=== PATIENT | male | born 2000 | race Native Hawaiian/Other Pacific Islander ===

== ENCOUNTER 2022-04-14 11:38 | Emergency (ER) | payer SELFPAY ==
[2022-04-14 12:03] VITALS: BP 135/82; PULSE 67; RESP 18; TEMP 36.7; O2SAT 99; BMI 29.2
--- NOTE | 2022-04-14 12:30 | ED.WOUNDLAC ---
HPI - Wound/Laceration General Chief Complaint: Laceration/Wound Stated Complaint: Laceration left foot Time Seen by Provider: 04/14/22 11:41 History of Present Illness HPI narrative: This 22-year-old male comes in with an injury to his left foot. He was using an axe to chop of root out. He ended up hitting his left foot. He was wearing leather boots and the ax cut through the boot and into the dorsal medial aspect of his left foot. His tetanus status is up-to-date. He has normal function of his foot and reports no other injury. Related Data Home Medications Medication Instructions Recorded Confirmed No Known Home Medications 04/14/22 04/14/22 Allergies Allergy/AdvReac Type Severity Reaction Status Date / Time No Known Drug Allergies Allergy Verified 04/14/22 12:07 Review of Systems Status of ROS: Reports: 10 or more systems reviewed and unremarkable except as noted in History and below Narrative: Constitutional: No fevers, no weight gain or loss. Eyes: No discharge. No vision changes. HENT: No congestion, no sore throat, no ear pain. Cardiovascular: No chest pain, no palpitations. Respiratory: No shortness of breath, no wheezes, no cough. Gastrointestinal: No abdominal pain, no vomiting, no diarrhea. Genitourinary: No dysuria, no hematuria. Musculoskeletal: Normal range of motion. Skin: No rashes, no pruritis. Laceration on the left foot as described above. Neurological: No dizziness, weakness, sensory change, speech change. Endo/Heme/Allergies: No bruising or bleeding. No polydipsia. Pysch: no suicidality, no anxiety, no insomnia. All other systems reviewed and are negative. [facility] Medical History (Updated 04/14/22 @ 12:36 by Fernando Lee MD) No significant past medical history Surgical History (Updated 04/14/22 @ 12:09 by Karyna Sam RN) H/O knee surgery Social History Smoking Status: Never smoker How often do you have a drink containing alcohol: monthly or less AUDIT-C Alcohol total score: 1 Non-prescribed substance use: denies use Exam Narrative: Exam Narrative: Constitutional: Well-developed, well-nourished, no acute distress. HEENT: Normocephalic, atraumatic. Neck: Normal range of motion. Nontender. Supple. Heart: Intact distal pulses. Lungs: No chest discomfort. No wheezes, rhonchi, or rales. Abdomen: Nontender. Back: Normal range of motion. Extremities: Normal range of motion. 2.5 cm linear laceration on the medial aspect of the dorsal portion of the left foot. Skin: Intact. No rash. Warm. No erythema or pallor. Neurologic: No altered sensation. No weakness. Alert and oriented. Psychiatric: No suicidality. No anxiety or depression. No insomnia. Nursing notes and vitals signs are reviewed. Const: Vital Signs, click to edit/add: Vital Signs - 24 hr 04/14/22 12:03 Temperature 98.1 F Pulse Rate [Pulse Oximeter] 67 Respiratory Rate 18 Blood Pressure [Ri ght Upper Arm] 135/82 Pulse Oximetry 99 Oxygen Delivery Me thod Room Air Course Vital Signs Vital signs: Initial Vital Signs Temperature 98.1 F 04/14/22 12:03 Temperature Source Temporal Artery Scan 04/14/22 12:03 Pulse Rate 67 04/14/22 12:03 Respiratory Rate 18 04/14/22 12:03 Blood Pressure 135/82 04/14/22 12:03 Blood Pressure Mean 99 04/14/22 12:03 Blood Pressure Position Supine 04/14/22 12:03 Pulse Oximetry 99 04/14/22 12:03 Oxygen Delivery Method 04/14/22 12:03 Vital Signs Temperature 98.1 F 04/14/22 12:03 Pulse Rate 67 04/14/22 12:03 Respiratory Rate 18 04/14/22 12:03 Blood Pressure 135/82 04/14/22 12:03 Pulse Oximetry 99 04/14/22 12:03 Oxygen Delivery Method 04/14/22 12:03 Temperature 98.1 F 04/14/22 12:03 Pulse Rate 67 04/14/22 12:03 Respiratory Rate 18 04/14/22 12:03 Blood Pressure 135/82 04/14/22 12:03 Pulse Oximetry 99 04/14/22 12:03 Oxygen Delivery Method 04/14/22 12:03 MDM - Wound/Laceration MDM Narrative Medical decision making narrative: This patient comes in with a laceration to his left foot. After anesthesia with 1% lidocaine the wound was explored to its base. There is no evidence of injury to structures beneath the skin. Tendon function is intact. I placed 5 sutures in interrupted fashion using 4.0 Ethilon suture. Instructions were given regarding wound care and the need for return for suture removal in 7-10 days. Discharge Plan Discharge Clinical Impression: Laceration Patient Disposition: Home, Self-Care Condition: Stable Instructions: Laceration (ED) Additional Instructions: Keep wound clean and dry. Follow with clinic or urgent care in 7-10 days for suture removal. Prescriptions: No Action No Known Home Medications Stand Alone Forms: [employer] Info Instructions
[2022-04-14 13:23] VITALS: BP 135/82; PULSE 67; RESP 18; TEMP 36.7
--- NOTE | 2022-04-14 13:25 | ED.NURSE ---
Lac sutured by . Bacitracin and adhesive dressing applied by MD. Bleeding and pain controlled at time of triage, ambulating well.
== END 2022-04-14 13:24 | disposition home or self-care (01) ==
PROVIDERS: Emergency Provider Emergency Medicine Emergency Medical Services
DX: S91.312A Laceration without foreign body, left foot, initial encounter (principal); W27.0XXA Contact with workbench tool, initial encounter
CPT/HCPCS: 12001; 99283

== ENCOUNTER 2023-01-31 12:55 | Emergency (ER) | payer OTHER, MEDICAID, SELFPAY ==
[2023-01-31 13:12] VITALS: BP 132/75; PULSE 67; RESP 18; TEMP 36.8; O2SAT 98; BMI 27.9
--- NOTE | 2023-01-31 13:39 | CRLHL7_ITS ---
For Patients: As a result of the Cures Act, medical imaging exams and procedure reports are released immediately into your electronic medical record. You may view this report before your referring provider. If you have questions, please contact your health care provider. Indication: Pain in the PIP of the 2nd through 4th digits Technique: A total of three views of the right hand were acquired. Comparison: None Findings: Bones: Alignment is normal. No fractures or bone lesions. Joint spaces: Unremarkable. Soft tissues: Unremarkable. Impression: Normal examination. No visible cause for pain. Dictated by Hernán Ordaz MD @ 01/31/2023 2:30:30 PM (Electronically Signed)
--- NOTE | 2023-01-31 14:58 | ED.GENADULT ---
HPI - General Adult General Chief complaint: Extremity Pain/Injury, Upper Stated complaint: R hand injury Time Seen by Provider: 01/31/23 13:34 Source: patient and family Mode of arrival: ambulatory Limitations: no limitations History of Present Illness HPI narrative: 22-year-old male reports that yesterday at approximately 4:00 p.m., he was moving a marble slab counter top by himself when he lost his footing on uneven ground. This caused him to fall forward, slamming his right hand between the marble slab and concrete. He did not break the marble slab in did not injure any other areas. No head injury. He was able to set the slab down. Initially was able to move the hand but the pain seems worse today. Is having a little bit of numbness and tingling intermittently and swelling at the interphalangeal joints. Did have some abrasions which seem to be healing over and had minimal bleeding, he applied Band-Aids initially. No fever. No prior history of significant hand injury. No numbness or tingling, no pain in the wrist. Has not tried Tylenol or ibuprofen for pain. He wonders if he is able to participate in a boxing tournament tomorrow. He states his past medical history is benign, no major long-term health problems. No surgeries to this part of the body in the past. No allergies. Nonsmoker. From [place], graduating from [employer] tomorrow. ROS is negative for other skin, generalized, neurological, musculoskeletal illness except the right hand. Related Data Home Medications Medication Instructions Recorded Confirmed No Known Home Medications 04/14/22 01/31/23 Allergies Allergy/AdvReac Type Severity Reaction Status Date / Time No Known Drug Allergies Allergy Verified 04/14/22 12:07 [facility] Medical History No significant past medical history Surgical History H/O knee surgery ?Z98.890 - Other specified postprocedural states (ICD-10) Social History Smoking Status: Never smoker How often do you have a drink containing alcohol: monthly or less AUDIT-C Alcohol total score: 1 Non-prescribed substance use: denies use Exam Const: Vital Signs, click to edit/add: Vital Signs - 24 hr 01/31/23 13:12 Temperature 98.2 F Pulse Rate [Right Pulse Oximeter] 67 Respiratory Rate 18 Blood Pressure [Ri ght Upper Arm] 132/75 Pulse Oximetry 98 Oxygen Delivery Me thod Room Air Documenting provider has reviewed patient's vital signs: yes Common normals: no apparent distress General appearance: cooperative, comfortable and well kempt HENMT: Common normals: normocephalic and head/scalp atraumatic Head and scalp: normocephalic and atraumatic Resp: Common normals: normal respiratory effort Effort & inspection: able to speak in complete sentences Cardio: Common normals: regular rate and regular rhythm Rate: regular rate Rhythm: regular rhythm Other: Normal radial pulses on right Extremity: Other: Right wrist with normal range of motion. Left hand with completely normal range of motion. Right hand has normal strength. Normal function of the thumb. There is slight resistance to be full flexion at the PIP joints of fingers 2 3 and 4. No difficulty with MCP joints. Mild swelling. Mild bruising. Slight abrasions along PIP joints in question. No difficulty with 5th finger. No redness, no warmth. No deformity. No point bony tenderness. Neuro: Motor exam: strength 5/5 throughout and no movement abnormalities noted Psych: Appearance: well kempt Mood and affect: euthymic mood Insight: insight good Skin: Narrative: Slight abrasions on PIP joints of right hand, extensor surface. Hemostatic with no drainage Course Course Hospital Course: Mild swelling is likely the etiology for difficulty fully moving the PIP joints. No signs of any severe fracture. X-ray performed. Reassuring. Offered Tylenol, ibuprofen they declined for now. I do not recommend boxing for the next 7 days. Reviewed x-ray findings with family, all questions answered. Conservative management recommended Vital Signs Vital signs: Initial Vital Signs Temperature 98.2 F 01/31/23 13:12 Temperature Source Temporal Artery Scan 01/31/23 13:12 Pulse Rate 67 01/31/23 13:12 Respiratory Rate 18 01/31/23 13:12 Blood Pressure 132/75 01/31/23 13:12 Blood Pressure Mean 94 01/31/23 13:12 Blood Pressure Position Sitting 01/31/23 13:12 Pulse Oximetry 98 01/31/23 13:12 Oxygen Delivery Method Room Air 01/31/23 13:12 Vital Signs Temperature 98.2 F 01/31/23 13:12 Pulse Rate 67 01/31/23 13:12 Respiratory Rate 18 01/31/23 13:12 Blood Pressure 132/75 01/31/23 13:12 Pulse Oximetry 98 01/31/23 13:12 Oxygen Delivery Method Room Air 01/31/23 13:12 Temperature 98.2 F 01/31/23 13:12 Pulse Rate 67 01/31/23 13:12 Respiratory Rate 18 01/31/23 13:12 Blood Pressure 132/75 01/31/23 13:12 Pulse Oximetry 98 01/31/23 13:12 Oxygen Delivery Method Room Air 01/31/23 13:12 Medical Decision Making MDM Narrative Medical decision making narrative: Findings reviewed with patient and family. Low suspicion for fracture, no fracture seen on x-ray. Recommend conservative management, Tylenol and ibuprofen. No brace or splint will be helpful. If still bothersome in 7 days, follow-up with primary care provider. All questions answered. Imaging Data XR hand: Attestation: I have reviewed the pertinent imaging results. My impression: Normal Radiologist's impression: Impression: Normal examination. No visible cause for pain. Discharge Plan Discharge Clinical Impression: Hand sprain Patient Disposition: Home w/ Parent or Adult Condition: Stable Instructions: Sprain (ED) Additional Instructions: As we discussed, no signs of fracture in the hand. No signs of nerve, arterial or tendon injury either. This is great news. I am not surprised that you are having difficulty moving the fingers fully because of the swelling. This should subside in a few days. I do not recommend boxing for the next 7 days because you risk higher injury not only in the hand but potentially to other boxing related injuries because you're distracted because of the pain in the hand. Proper dosing of Tylenol as 1000 mg every 6 hours and or ibuprofen every 6 hours 600 mg. You may alternate between the 2. Apply ice for 15 minutes 3 times daily if the pain is very bothersome. Some numbness and tingling in the fingertips would be expected and should subside within a few days. If you are still having problems after 10 days, I would recommend a follow-up appointment in the clinic and referral to Orthopedics. No tight gripping or lifting over 15 lb for the next 48 hours, then you are release to full duty. Activity Level: Activity as Tolerated Discharge Diet: Regular Prescriptions: No Action No Known Home Medications Follow Up/Referrals: Provider,Not a Local [Primary Care Provider] - Stand Alone Forms: [employer] Info Instructions
--- NOTE | 2023-01-31 15:09 | ED.NURSE ---
Two abrasions noted to right hand on index and ring fingers. Scabbing has started over both wounds. Visible wound beds pink and dry. Provider aware and assessed during examination.
== END 2023-01-31 15:02 | disposition home or self-care (01) ==
PROVIDERS: Emergency Provider Family Medicine
DX: S63.91XA Sprain of unspecified part of right wrist and hand, initial encounter (principal); W18.39XA Other fall on same level, initial encounter; Y93.89 Activity, other specified
CPT/HCPCS: 73130; 99282; 99283